=== PATIENT | male | born 1960 | race Two or more races ===

== ENCOUNTER 2022-04-05 16:40 | Inpatient (IN) | payer OTHER ==
[~2022-04-05] VITALS: Ht 167.6 cm; Wt 90.7 kg
--- NOTE | 2022-04-05 16:45 | NUR ---
BIBRA 79 FROM HOME W/ C/O MID CHEST PRESSURE RAD TO L ARM SINCE YESTERDAY, JJ=[id number], SOB, LIGHT-HEADEDNESS. PT ON HD, RFA FISTULA, LAST HD YESTERDAY. TO ER BED 9.
--- NOTE | 2022-04-05 17:00 | NUR ---
pt seen by dr saravia at bedside
--- NOTE | 2022-04-05 17:02 | NUR ---
PHLEB AT BEDSIDE FOR BLOOD DRAW
--- NOTE | 2022-04-05 17:03 | NUR ---
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
--- NOTE | 2022-04-05 17:04 | NUR ---
MOVE SHEET SUBMITTED.
--- NOTE | 2022-04-05 17:05 | NUR ---
RUG DYER AT BEDSIDE
--- NOTE | 2022-04-05 17:12 | NUR ---
COVID SWAB COLLECTED AND SENT TO LAB
[2022-04-05 17:18] LABS: BASOPHILS % (AUTO) 0.3 % (0.0-2.0); EOSINOPHILS % (AUTO) 0.8 % (0.0-6.0); HEMATOCRIT 34 % (39-51); HEMOGLOBIN 10.8 g/dL (13.5-17.5); LYMPHOCYTES # (AUTO) 0.9 K/uL (0.8-4.8); LYMPHOCYTES % (AUTO) 12.1 % (20.0-44.0); MEAN CORPUSCULAR HGB CONC 32 g/dl (31.0-36.0); MEAN CORPUSCULAR VOLUME 95 fL (80-96); MONOCYTES # (AUTO) 0.8 K/uL (0.1-1.30); MONOCYTES % (AUTO) 10.2 % (2.0-12.0); NEUTROPHILS # (AUTO) 5.9 K/uL (1.8-8.9); NEUTROPHILS % (AUTO) 76.6 % (43.0-81.0); PLATELET COUNT (AUTO) 228 K/uL (150-450); RED BLOOD CELL COUNT(AUTO) 3.58 MIL/uL (4.5-6.0); WHITE BLOOD COUNT (AUTO) 7.8 K/uL (4.3-11.0)
[2022-04-05] MEDS ORDERED: APIX5TAB PO (17:20)
[2022-04-05] MEDS ORDERED: INSU100V27 SQ (17:20)
[2022-04-05] MEDS ORDERED: INSU100V7 SQ (17:20)
[2022-04-05] MEDS ORDERED: SEVE800T8 PO (17:20)
[2022-04-05] MEDS ORDERED: ATOR40TA PO (17:20)
[2022-04-05] MEDS ORDERED: AMIO200T5 PO (17:20)
[2022-04-05] MEDS ORDERED: SENN-261 PO (17:20)
[2022-04-05] MEDS ORDERED: CARV3.12 PO (17:20)
[2022-04-05] MEDS ORDERED: NITR0.4T48 SL (17:20)
[2022-04-05] MEDS ORDERED: ASPI-1169 PO (17:20)
[2022-04-05] MEDS ORDERED: CINA30TA2 PO (17:20)
[2022-04-05] MEDS ORDERED: ASPIRIN 81 MG TAB.CHEW ONE (17:58)
[2022-04-05 17:59] LABS: CALCIUM, SERUM 8.1 mg/dL (8.5-10.1); CARBON DIOXIDE 26 mmol/L (21-32); CHLORIDE 99 mmol/L (98-107); GLUCOSE 342 mg/dL (74-106); POTASSIUM 4.3 mmol/L (3.5-5.1); SODIUM SERUM 138 mmol/L (136-145); UREA NITROGEN, BLOOD 77 mg/dL (7-18)
[2022-04-05] MEDS ORDERED: ASPIRIN 81 MG TAB.CHEW PO ONE (18:00)
--- NOTE | 2022-04-05 18:01 | NUR ---
DR SINGH MADE AWARE OF PT'S COMPLAINT OF CHEST PAIN 2/ PS, NON-RAD, NO SOB. VS TAKEN AND RECORDED. W/ ORDER FOR ASPIRIN NOTED.
[2022-04-05] MEDS ORDERED: AZITHROMYCIN 500 MG in IV D5W 250 ML IV ONE (18:30)
[2022-04-05] MEDS ORDERED: CEFTRIAXONE 1GM BAG (ER ONLY) 50 ML IV ONE (18:30)
[2022-04-05] MEDS ORDERED: NITROGLYCERIN 0.4 MG/TAB BOTTLE SL PRN ×2 (18:30→22:00)
--- NOTE | 2022-04-05 18:55 | NUR ---
CALLED [facility] Kelly SHIPLEY WILL CALL US BACK.
--- NOTE | 2022-04-05 20:35 | NUR ---
creatinine 10.2
[2022-04-05 20:42] LABS: CREATININE 10.2 mg/dL (0.6-1.3)
--- NOTE | 2022-04-05 21:16 | NUR ---
ROOM 308-2
--- NOTE | 2022-04-05 21:51 | NUR ---
PATIENT BEING TRANSFERRED TO [facility] VIA ACLS
--- NOTE | 2022-04-05 21:51 | NUR ---
REPORT GIVEN TO ELINA PITTMAN
[2022-04-05] MEDS ORDERED: MAG HYDROX/AL HYDROX/SIMETH 30 ML UDC PO PRN (22:00)
[2022-04-05] MEDS ORDERED: ZOLPIDEM TARTRATE 5 MG TABLET PO PRN (22:00)
[2022-04-05] MEDS ORDERED: MAGNESIUM HYDROXIDE 30 ML UDC PO PRN (22:00)
[2022-04-05] MEDS ORDERED: DEXTROSE 50%-WATER 50 ML DISP.SYRIN IV PRN (22:00)
[2022-04-05] MEDS ORDERED: ACETAMINOPHEN 325 MG TABLET PO PRN (22:00)
[2022-04-05] MEDS ORDERED: ONDANSETRON HCL/PF 4 MG/2 ML VIAL IVP PRN (22:00)
[2022-04-05] MEDS ORDERED: INSULIN REGULAR, HUMAN 100 UNIT/ML 3 ML VIAL SQ PRN (22:00)
[2022-04-05] MEDS ORDERED: Z GUARD REMEDY 4 OZ OINT TP PRN (22:00)
--- NOTE | 2022-04-05 22:42 | NUR ---
trop 236, aware
[2022-04-05 22:48] VITALS: BP 140/84
[2022-04-05] MEDS: *INSULIN REGULAR(HUMULIN R)HUM 100 UNIT/ML VIAL SQ PRN (23:53)
[2022-04-05] MEDS: BLOOD SUGAR DIAGNOSTIC 1 EACH STRIP VI SCH (23:58)
--- NOTE | 2022-04-05 23:58 | NUR ---
RN NOTE; RECEIVED PT FROM ER IN RM 308-2 WITH HUMERA JACOBSON ABLE TO MAKE NEEDS KNOWN,DAMARIS WELL ON RM AIR SATTING 97%,NO SOB/DISTRESS NOTED,BREATHING EVEN AND UNLABORED,NO COMPLAIN OF PAIN/DISCOMFORT AT THIS TIME,IV ACCESS RAC 20G SL,PT WAS ORIENT THE RM AND VERBALLY UNDERSTANDING,SAFETY MEASURE IN PLACE,CALL LIGHT WITHIN REACH,WILL CONTINUE TO MONITOR.
[2022-04-06 04:00] VITALS: BP 138/71
--- NOTE | 2022-04-06 06:15 | NUR ---
RN CLOSING NOTE;308 PATIENT IN BED AAOX4 ABLE TO MAKE NEEDS KNOWN,DAMARIS WELL ON RM AIR SATTING 98%,NO SOB/DISTRESS NOTED,BREATHING EVEN AND UNLABORED,NO COMPLAIN OF PAIN/DISCOMFORT DURING SHIFT,DUE MEDS GIVEN ORDER,ALL NEEDS ATTENDED,IV ACCESS LT INDEX FINGER 20G PATENT AND INTACT SL,SAFETY MEASURE IN PLACE,CALL LIGHT WITHIN REACH,WILL ENDORSED TO NEXT SHIFT.
[2022-04-06] MEDS: *INSULIN REGULAR(HUMULIN R)HUM 100 UNIT/ML VIAL SQ PRN (06:41)
[2022-04-06] MEDS: BLOOD SUGAR DIAGNOSTIC 1 EACH STRIP VI SCH ×2 (06:43→11:49)
--- NOTE | 2022-04-06 07:28 | NUR ---
ICE CARVER OPENING NOTES RECEIVED PATIENT AWAKE IN BED IN NO ACUTE SIGNS OF DISTRESS. AOX4, ABLE TO MAKE NEEDS KNOWN, DENIES PAIN OR ANY DISCOMFORT AT THIS TIME. ON ROOM AIR, TOLERATING WELL, BREATHING EVEN AND UNLABORED. IV ACCESS ON LEFT INDEX FINGER G#22 SL, INTACT AND PATENT. TELE-MONITOR CURRENTLY SHOWS SR WITH BBB'S, HR ON THE 70'S, NO C/O CARDIAC DISTRESS VOICED AT THIS TIME. PT WITH RFA AV FISTULA WITH + BRUIT AND SHRILL NOTED. LLQ COLOSTOMY IN PLACE WITH NO FECES NOTED AT THIS TIME. SAFETY MEASURES MAINTAINED: BED IN LOWEST AND LOCKED POSITION, SIDE RAILS X2 UP, TRAY TABLE AND CALL LIGHT WITHIN EASY REACH. WILL CONTINUE TO MONITOR PT ACCORDINGLY.
[2022-04-06 08:22] VITALS: BP 146/76
[2022-04-06 08:47] LABS: BASOPHILS # (AUTO) 0.1 K/uL (0.0-0.2); BASOPHILS % (AUTO) 0.6 % (0.0-2.0); EOSINOPHILS % (AUTO) 0.7 % (0.0-6.0); HEMATOCRIT 30 % (39-51); HEMOGLOBIN 9.6 g/dL (13.5-17.5); LYMPHOCYTES # (AUTO) 1.5 K/uL (0.8-4.8); LYMPHOCYTES % (AUTO) 15.1 % (20.0-44.0); MEAN CORPUSCULAR HGB CONC 32 g/dl (31.0-36.0); MEAN CORPUSCULAR VOLUME 94 fL (80-96); MONOCYTES # (AUTO) 0.8 K/uL (0.1-1.30); MONOCYTES % (AUTO) 7.8 % (2.0-12.0); NEUTROPHILS # (AUTO) 7.3 K/uL (1.8-8.9); NEUTROPHILS % (AUTO) 75.8 % (43.0-81.0); PLATELET COUNT (AUTO) 219 K/uL (150-450); RED BLOOD CELL COUNT(AUTO) 3.13 MIL/uL (4.5-6.0); WHITE BLOOD COUNT (AUTO) 9.6 K/uL (4.3-11.0)
[2022-04-06 08:51] LABS: CALCIUM, SERUM 8.1 mg/dL (8.5-10.1); MAGNESIUM 2.3 mg/dL (1.8-2.4); PHOSPHORUS 5.6 mg/dL (2.5-4.9); POTASSIUM 4.7 mmol/L (3.5-5.1)
[2022-04-06] MEDS ORDERED: APIXABAN 5 MG TABLET PO SCH (09:00)
[2022-04-06] MEDS ORDERED: CARVEDILOL 3.125 MG TABLET PO SCH ×2 (09:00)
[2022-04-06] MEDS ORDERED: HEPARIN INFUSION/D5W 500 ML IV PRN (09:00)
[2022-04-06] MEDS ORDERED: ATORVASTATIN 40 MG TABLET PO SCH (09:00)
[2022-04-06] MEDS ORDERED: SENNOSIDES 8.6 MG TABLET PO SCH (09:00)
[2022-04-06] MEDS ORDERED: CEFTRIAXONE 1 G in IV D5W 50 ML IV SCH ×2 (09:00→18:00)
[2022-04-06] MEDS ORDERED: ASPIRIN 81 MG TAB.CHEW PO SCH (09:00)
[2022-04-06] MEDS ORDERED: CINACALCET HCL 30 MG TABLET PO SCH (09:00)
[2022-04-06] MEDS ORDERED: AMIODARONE HCL 200 MG TABLET PO SCH (09:00)
[2022-04-06 09:35] LABS: CREATININE 11.5 mg/dL (0.6-1.3)
--- NOTE | 2022-04-06 09:44 | NUR ---
RN NOTES DR NICOLE ORDERED HEPARIN DRIP FOR PATIENT. INFORMED AND EXPLAINED TO PT THAT HE'S GOING TO RECEIVED HEPARIN DRIP TODAY BUT PT REFUSED TO RECEIVED IT, HE STATED THAT HE HAD ILL REACTIONS LIKE VERY BAD FLOATERS WHEN HE RECEIVED HEPARIN BEFORE. DR NICOLE MADE AWARE AND HE SAID' OK'. HEPARIN DRIP CANCELLED.
[2022-04-06] MEDS: SEVELAMER CARBONATE 800 MG TABLET PO SCH ×2 (09:46→13:12)
[2022-04-06 12:00] VITALS: BP 137/73
--- NOTE | 2022-04-06 15:45 | NUR ---
RN NOTES ELINA VILLALOBOS CALLED AND GAVE REPORT TO ELINA PÉREZ OF [facility]. ELISA STATED THAT DR DELGADO WILL BE THE ACCEPTING PHYSICIAN.
--- NOTE | 2022-04-06 15:48 | NUR ---
RN NOTES PT COMPLETED AND TOLERATED HEMODIALYSIS VIA RFA AV FISTULA WITH 1,500ML OUT.
[2022-04-06 16:00] VITALS: BP 158/78
--- NOTE | 2022-04-06 16:22 | NUR ---
RN DISCHARGED NOTES PT DISCHARGED TO [facility] IN STABLE CONDITION. CALLED AND REPORT GIVEN TO ELINA PÉREZ OF [facility], VERBALIZED UNDERSTANDING. PT IS A/O X4. ABLE TO MAKE NEEDS KNOWN. V/S TAKEN, STABLE AND RECORDED. PHOTOS OF SKIN ISSUES TAKEN FROM PREVIOUS SHIFT AND WAS FILED ON HIS CHART. ALL BELONGINGS ACCOUNTED FOR AND PT SIGNED BELONGING LIST. IV ACCESS ON LEFT INDEX FINGER G#[address] PER REQUEST FROM ELINA PÉREZ. RFA AV FISTULA IN PLACE, PT S/P HEMODIALYSIS, NO ACTIVE BLEEDING AT SITE NOTED. COLOSTOMY IN PLACE AND FUNCTIONING. REPORT AND EXIT FOLDER HANDED TO EMT'S. PT LEFT UNIT @ [id number] VIA GURNEY ACCOMPANIED BY 2 COTTON BAG CLIPPER. MD AND CHARGE NURSE AWARE OF DISCHARGE
== END 2022-04-06 16:35 | disposition short-term general hospital (02) | DRG 193 ==
LOC: ER 16:51 → TELE 21:36
PROVIDERS: ADMIT Nurse Practitioner Acute Care; ATTEND Student in an Organized Health Care Education/Training Program
PROC: 5A1D70Z Performance of Urinary Filtration, Intermittent, Less than 6 Hours Per Day (ICD-10-PCS; principal; 2022-04-06)
DX: J15.9 Unspecified bacterial pneumonia (principal); I21.A1 Myocardial infarction type 2; N18.6 End stage renal disease; I12.0 Hypertensive chronic kidney disease with stage 5 chronic kidney disease or end stage renal disease; I48.20 Chronic atrial fibrillation, unspecified; D63.8 Anemia in other chronic diseases classified elsewhere; E66.9 Obesity, unspecified; E78.5 Hyperlipidemia, unspecified; E83.51 Hypocalcemia; I25.10 Atherosclerotic heart disease of native coronary artery without angina pectoris; Z86.718 Personal history of other venous thrombosis and embolism; Z79.82 Long term (current) use of aspirin; Z86.73 Personal history of transient ischemic attack (TIA), and cerebral infarction without residual deficits; Z93.3 Colostomy status; Z95.1 Presence of aortocoronary bypass graft; Z90.49 Acquired absence of other specified parts of digestive tract; Z99.2 Dependence on renal dialysis; Z79.01 Long term (current) use of anticoagulants; Z79.4 Long term (current) use of insulin; Z79.899 Other long term (current) drug therapy; R07.89 Other chest pain; E11.22 Type 2 diabetes mellitus with diabetic chronic kidney disease; I44.7 Left bundle-branch block, unspecified; M89.8X9 Other specified disorders of bone, unspecified site; Z68.32 Body mass index [BMI] 32.0-32.9, adult; Z20.822 Contact with and (suspected) exposure to COVID-19
CPT/HCPCS: 36415; 71045-TC; 80048-TC; 80061-TC; 82962-TC; 83735-TC; 84100-TC; 84484-TC; 85025-TC; 85610-TC; 85730-TC; 86706; 87040-TC; 87081-TC; 87340; 90935-TC; 93307-TC; C9803; G0378; J0456; J0696; J1815; J7060